=== PATIENT | female | born 1970 | race Caucasian/White ===

== ENCOUNTER 2018-04-11 11:27 | Emergency (ER) | payer OTHER ==
[~2018-04-11] VITALS: Ht 160 cm; Wt 70.3 kg
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
[2018-04-11] MEDS ORDERED: IBUPROFEN 400 MG TABLET. PO ONE (12:00)
[2018-04-11 12:25] LABS: U PREG PATIENT NEGATIVE (NEG)
[2018-04-11] MEDS ORDERED: HYDR-2758 PO (13:15)
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
[2018-04-11 13:55] VITALS: BP 128/72
== END 2018-04-11 13:55 | disposition home or self-care (01) ==
LOC: ER 11:27
DX: M25.512 Pain in left shoulder (principal); R20.2 Paresthesia of skin; M54.2 Cervicalgia; V89.2XXA Person injured in unspecified motor-vehicle accident, traffic, initial encounter; Y93.I9 Activity, other involving external motion; Y99.8 Other external cause status; Y92.488 Other paved roadways as the place of occurrence of the external cause
CPT/HCPCS: 72125; 73010; 73030; 81025; 99285-25

== ENCOUNTER 2021-09-05 21:18 | Emergency (ER) | payer BC, OTHER ==
[~2021-09-05] VITALS: Ht 160 cm; Wt 75.3 kg
[~2021-09-05 21:18] MED LIST: HYDR-2155 PO
[2021-09-05 21:31] VITALS: BP 113/75
--- NOTE | 2021-09-05 21:38 | EKG ---
[address] [address] Test Date: 2021-09-05 Test Time: 21:29:14 Pat Name: ALENA BENDER Department: Room: Gender: F Demo Coordinator: HARSHIL : 1970 Requested By: DOUGLAS DUGGAN Order Number: [id number] Reading MD: Emir Salinas Measurements Intervals [place] Rate: 95 P: 40 [place]: 138 QRS: 48 QRSD: 80 T: 51 QT: 352 QTc: 446 Interpretive Statements SINUS RHYTHM Electronically Signed On 09-08-2021 16:19:14 [employer] by Emir Salinas
--- NOTE | 2021-09-05 22:03 | PHYS DOC ---
Past History Past Medical History: No Pertinent History (DOUGLAS DUGGAN) Past Surgical History: No Surgical History (DOUGLAS DUGGAN) Smoking: Cigarettes Alcohol Use: None Drug Use: None (DOUGLAS DUGGAN) General Adult EDM: Chief Complaint: CHEST PAIN HPI: HPI: Patient is a 51 year old female who presents with intermittent chest pain at rest for the past several weeks. Patient is not currently in pain, but describes the pain she experiences as a "tightness" over her chest that radiates straight to her back. Patient cannot provide many details surrounding circumstances of her pain. She is unsure of how long it typically lasts, but today's episode lasted approximately 1 hour. She does not report that it is or is not related to what food she eats or activities throughout the day. She admittedly has not seen a family doctor for several years, and therefore has no medical history at this time. She denies associated weakness, diaphoresis, nausea or vomiting. (DOUGLAS DUGGAN) Review of Systems: Review of Systems: Constitutional: Denies fever or chills Eyes: Denies change in visual acuity HENT: Denies nasal congestion or sore throat Respiratory: Denies cough or shortness of breath Cardiovascular: See HPI GI: See HPI : Denies dysuria or hematuria Musculoskeletal: Denies back pain or joint pain Integument: Denies rash or other skin lesion Neurologic: Denies headache, focal weakness or sensory changes (DOUGLAS DUGGAN) Allergies: Allergies: Allergies Coded Allergies Type Severity Reaction Last Updated Verified No Known Drug Allergies 04/11/18 No (DOULGAS DUGGAN) Physical Exam: PE: Constitutional: Well developed, well nourished, no acute distress, non-toxic appearance. Neck: Normal range of motion, no tenderness, supple, no stridor, no JVD. Cardiovascular: Heart rate regular rhythm, no murmur. Lungs & Thorax: Bilateral breath sounds clear to auscultation. Abdomen: Bowel sounds normal, soft, no tenderness, no masses, no pulsatile masses. Skin: Warm, dry, no erythema, no rash. Back: No tenderness, no CVA tenderness. Neurologic: Alert and oriented x4, no focal deficits noted. (DOUGLAS DUGGAN) Current Patient Data: Vital Signs: Vital Signs Date Time Temp Pulse Resp B/P (MAP) Pulse Ox O2 Delivery O2 Flow Rate FiO2 09/05/21 21:31 97.9 97 18 113/75 (88) 98 Room Air (DOUGLAS DUGGAN) EKG: EKG: EKG Interpreted by Dr. Fitzpatrick at 2128: Regular rate and rhythm 95 bpm with no ectopic beats. QT 352 ms/QTc 446 ms. No STEMI. (DOUGLAS DUGGAN) Radiology/Procedures: Radiology/Procedures: PROCEDURE: PORTABLE CHEST 1V EXAM: AP View of the chest DATE: 09/05/2021 9:39 PM INDICATION: Reason: CP intermittent / Spl. Instructions: / History: COMPARISON: No Prior FINDINGS: The heart is not enlarged. Mediastinal and hilar contours are normal. Patchy opacities peripheral lower lungs. No pleural effusion or pneumothorax. IMPRESSION: Patchy opacities peripheral lower lungs likely atelectasis or developing consolidation. Electronically signed by: Haim Argueta MD (09/05/2021 10:07 PM) [facility] (DOUGLAS DUGGAN) Heart Score: C/O Chest Pain: Yes HEART Score for Chest Pain: HEART Score for Chest Pain Response (Comments) Value History Moderately Suspicious 1 ECG Normal 0 Age >45 - < 65 1 Risk Factors 1 or 2 Risk Factors 1 Troponin < Normal Limit 0 Total 3 Risk Factors: Risk Factors: current smoker Risk Scores: Score 0 - 3: 2.5% MACE over next 6 weeks - Discharge Home Score 4 - 6: 20.3% MACE over next 6 weeks - Admit for Clinical Observation Score 7 - 10: 72.7% MACE over next 6 weeks - Early Invasive Strategies (DOUGLAS DUGGAN) Course & Med Decision Making: Course & Med Decision Making Pertinent Labs and Imaging studies reviewed. (See chart for details) Patient denies any past medical history, though has not visited primary care in quite some time. Work-up today will be cardiac, including EKG, chest x-ray, troponin and lab work. Work-up is largely reassuring. Patient's potassium is low at 3.3. Will order 40 mEq p.o. and provide her with discharge instruction to eat potassium rich foods. Findings discussed with the patient. Patient understands she needs to follow-up with primary care. Patient understands and is agreeable to discharge plan. (DOUGLAS DUGGAN) Dragon Disclaimer: Aster Disclaimer: This electronic medical record was generated, in whole or in part, using a voice recognition dictation system. (DOUGLAS DUGGAN) Departure Departure: Impression: Primary Impression: Chest pain at rest Additional Impressions: Hypokalemia Cigarette smoker Disposition: HOME / SELF CARE / HOMELESS Condition: STABLE Referrals: TIERRA ADAMS MD (PCP) Patient Instructions: Chest Pain (Nonspecific), [id number] Potassium Content of Foods, Smoking Cessation, Tips For Success Attending Signature Attending Signature I have participated in the care of this patient and I have reviewed and agree with all pertinent clinical information above including history, exam, and recommendations. (CLEMENCIA FITZPATRICK MD) DOUGLAS DUGGAN Sep 05, 2021 22:03 CLEMENCIA FITZPATRICK MD Sep 06, 2021 07:35
--- NOTE | 2021-09-05 22:10 | RAD ---
EXAM: AP View of the chest DATE: 09/05/2021 9:39 PM INDICATION: Reason: CP intermittent / Spl. Instructions: / History: COMPARISON: No Prior FINDINGS: The heart is not enlarged. Mediastinal and hilar contours are normal. Patchy opacities peripheral lower lungs. No pleural effusion or pneumothorax. IMPRESSION: Patchy opacities peripheral lower lungs likely atelectasis or developing consolidation. Electronically signed by: Haim Argueta MD (09/05/2021 10:07 PM) [facility]
[2021-09-05 22:13] LABS: BASO # 0.1 x10^3/uL (0.0-0.2); BASO % 1 % (0-3); EOS # 0.2 x10^3/uL (0.0-0.7); EOS % 3 % (0-3); HEMATOCRIT 38.9 % (36.0-47.0); HEMOGLOBIN 13.3 g/dL (12.0-15.5); LYMPH # 1.4 x10^3/uL (1.0-4.8); LYMPH % 21 % (24-48); MEAN CORPUSCULAR HEMOGLOBIN 30 pg (25-35); MEAN CORPUSCULAR HGB CONC 34 g/dL (31-37); MEAN CORPUSCULAR VOLUME 89 fL (79-100); MONO # 0.5 x10^3/uL (0.0-1.1); MONO % 8 % (0-9); NEUT # 4.6 x10^3uL (1.8-7.7); NEUT % 67 % (31-73); PLATELET COUNT 263 x10^3/uL (140-400); RED BLOOD COUNT 4.39 x10^6/uL (3.50-5.40); RED CELL DISTRIBUTION WIDTH 13.3 % (11.5-14.5); WHITE BLOOD COUNT 6.8 x10^3/uL (4.0-11.0)
[2021-09-05 22:25] LABS: CALCIUM 8.2 mg/dL (8.5-10.1); CREATININE 0.7 mg/dL (0.6-1.0); GFR 88.9; POTASSIUM 3.3 mmol/L (3.5-5.1)
[2021-09-05 22:31] LABS: ALBUMIN 3.5 g/dL (3.4-5.0); MAGNESIUM 1.9 mg/dL (1.8-2.4); TOTAL BILIRUBIN 0.1 mg/dL (0.2-1.0)
[2021-09-05] MEDS ORDERED: POTASSIUM BICARB 20 MEQ EFFERVESCENT TABLET. PO ONE (23:15)
== END 2021-09-05 23:15 | disposition home or self-care (01) ==
LOC: ER 21:18
DX: R07.89 Other chest pain (principal); E87.6 Hypokalemia; F17.210 Nicotine dependence, cigarettes, uncomplicated
CPT/HCPCS: 36415; 71045; 80053; 83690; 83735; 84484; 85025; 93005; 99285